=== PATIENT | male | born 1960 | race Caucasian/White ===

== ENCOUNTER 2022-08-19 07:12 | Day surgery (SDC) | payer MEDICAID ==
[~2022-08-19] VITALS: Ht 172.7 cm; Wt 88.6 kg
[~2022-08-19 07:12] MED LIST: APIX5TAB PO; ASPI-1444 PO; ATOR40TA71 PO; CHOL200059 PO; DULA1.5P SQ; HYDR-4069 PO; METO-391 PO; METO-408 PO; NALO4SPR3 NASAL; OMEP20CA12 PO; SACU1TAB PO; SODIUM CHLORIDE 0.9% 1,000 ML ONE; SPIR-37 PO
[2022-08-19] MEDS ORDERED: LIDOCAINE/PF 2% 5 ML SYRINGE IVP ONE (07:13)
[2022-08-19] MEDS ORDERED: PROPOFOL 1% 20 ML VIAL IVP ONE (07:13)
[2022-08-19] MEDS ORDERED: MIDAZOLAM HCL 2 MG/2 ML VIAL ONE ×2 (07:41→07:42)
[2022-08-19] MEDS ORDERED: FentaNYL CITRATE PF 100 MCG/2 ML VIAL ONE (07:42)
[2022-08-19 07:47] LABS: COVID AG,FIA SOURCE NASAL SWAB
[2022-08-19] MEDS ORDERED: SODIUM CHLORIDE 0.9% 1,000 ML IV ONE (08:00)
[2022-08-19 08:51] LABS: GLUCOMETER DEV NAME(LOC) SDS.; GLUCOSE,POINT OF CARE 134 MG/DL (70-110)
== END 2022-08-19 10:50 | disposition home or self-care (01) ==
LOC: SURGERY 07:12
PROVIDERS: ATTEND Student in an Organized Health Care Education/Training Program
DX: K21.9 Gastro-esophageal reflux disease without esophagitis (principal); I48.91 Unspecified atrial fibrillation; I10 Essential (primary) hypertension; I42.1 Obstructive hypertrophic cardiomyopathy; E78.2 Mixed hyperlipidemia; G47.33 Obstructive sleep apnea (adult) (pediatric); E11.9 Type 2 diabetes mellitus without complications; J44.9 Chronic obstructive pulmonary disease, unspecified; Z79.899 Other long term (current) drug therapy; Z20.822 Contact with and (suspected) exposure to COVID-19
CPT/HCPCS: 43239; 87426; 82962; 93005; C1769; J2704; J3490; J7030; C9803; J2250; J3010